=== PATIENT | female | born 1980 | race Caucasian/White ===

== ENCOUNTER 2017-10-18 15:53 | Observation (INO) | payer SELFPAY ==
[~2017-10-18] VITALS: Ht 152.4 cm; Wt 70.3 kg
[2017-10-18 18:00] LABS: CLARITY URINE CLOUDY (CLEAR); COLOR URINE DARK YELLOW (YELLOW); KETONES URINE TRACE (NEGATIVE); LEUKOCYTE ESTERASE URINE NEGATIVE (NEGATIVE); NITRITE URINE NEGATIVE (NEGATIVE); OCCULT BLOOD URINE NEGATIVE (NEGATIVE); PH URINE 6.5 (4.5-8.0); PROTEIN URINE 1+ (NEGATIVE); SPECIFIC GRAVITY URINE 1.028 (1.005-1.030)
[2017-10-18] MEDS ORDERED: LACTATED RINGERS 1,000 ML IV ONE (19:45)
[2017-10-18] MEDS ORDERED: DEXT 5%/LACTATED RINGERS 1,000 ML IV SCH (20:00)
[2017-10-18] MEDS ORDERED: TERBUTALINE SULFATE 1MG/ML VIAL SUBCUT SCH (21:34)
== END 2017-10-18 22:57 | disposition home or self-care (01) ==
LOC: L&D 15:53
PROVIDERS: ADMIT Obstetrics & Gynecology; ATTEND Obstetrics & Gynecology
DX: O26.893 Other specified pregnancy related conditions, third trimester (principal); R10.30 Lower abdominal pain, unspecified; O62.9 Abnormality of forces of labor, unspecified; O99.89 Other specified diseases and conditions complicating pregnancy, childbirth and the puerperium; M54.9 Dorsalgia, unspecified; Z3A.36 36 weeks gestation of pregnancy
CPT/HCPCS: 76805; 76818; 81003; 96360; 96361; 96372; 99281; G0378; J3105; J7120; 96365

== ENCOUNTER 2017-10-31 23:33 | Inpatient (IN) | payer MEDICAID ==
[~2017-10-31] VITALS: Ht 152.4 cm; Wt 71.7 kg
[2017-11-01] VITALS (7 sets, daily range): BP systolic 96–113; BP diastolic 58–70
[2017-11-01] MEDS ORDERED: NALOXONE HCL 0.4 MG/ML 1ML VIAL IM PRN (00:45)
[2017-11-01] MEDS ORDERED: CARBOPROST TROMETHAMINE 250 MCG/ML AMPUL IM PRN (00:45)
[2017-11-01] MEDS: LACTATED RINGERS 1,000 ML IV SCH ×4 (00:45→21:59)
[2017-11-01] MEDS ORDERED: METHYLERGONOVINE MALEATE 0.2 MG/ML IM PRN (00:45)
[2017-11-01] MEDS ORDERED: DEXT 5%/LR + PITOCIN 20UNITS/L 1,000 ML IV SCH ×2 (00:45→03:02)
[2017-11-01] MEDS ORDERED: FENTANYL CITRATE/PF 50MCG/ML 2ML VIAL ONE (01:42)
[2017-11-01] MEDS ORDERED: MORPHINE SULFATE/PF 1MG/ML 10ML AMP ONE (01:42)
[2017-11-01 01:45] LABS: HEMATOCRIT. 38.6 % (36.0-48.0); HEMOGLOBIN. 13.7 g/dL (12.0-16.0); MEAN PLATELET VOLUME 10.1 fl (7.4-10.4); PLATELET 199 x1000/uL (130-400); RED BLOOD CELL COUNT 4.15 mill/uL (4.2-5.4); RED CELL DISTRIBUTION WIDTH 13.3 % (11.6-14.6)
[2017-11-01 02:03] LABS: CLARITY URINE CLEAR (CLEAR); COLOR URINE YELLOW (YELLOW); KETONES URINE NEGATIVE (NEGATIVE); LEUKOCYTE ESTERASE URINE NEGATIVE (NEGATIVE); NITRITE URINE NEGATIVE (NEGATIVE); OCCULT BLOOD URINE NEGATIVE (NEGATIVE); PH URINE 6.5 (4.5-8.0); PROTEIN URINE NEGATIVE (NEGATIVE); SPECIFIC GRAVITY URINE 1.005 (1.005-1.030); UROBILINOGEN URINE 0.2 E.U./dL (0.2-1.0)
[2017-11-01 02:12] LABS: *AMPHETAMINES SCREEN URINE NEGATIVE (NEGATIVE)
[2017-11-01 02:13] LABS: *BARBITURATES SCREEN URINE NEGATIVE (NEGATIVE); *BENZODIAZEPINES SCREEN URINE NEGATIVE (NEGATIVE); *COCAINE SCREEN URINE NEGATIVE (NEGATIVE); METHADONE URINE SCREEN NEGATIVE (NEGATIVE); OPIATES URINE SCREEN NEGATIVE (NEGATIVE); PHENCYCLIDINE URINE SCREEN NEGATIVE (NEGATIVE)
[2017-11-01 02:14] LABS: CANNABINOID URINE SCREEN NEGATIVE (NEGATIVE)
[2017-11-01] MEDS ORDERED: CEFAZOLIN SODIUM 1000MG/VIAL ONE (02:33)
[2017-11-01] MEDS ORDERED: IBUPROFEN 400MG TABLET PO PRN (03:15)
[2017-11-01] MEDS ORDERED: ACETAMINOPHEN WITH CODEINE 300/30MG TABLET PO PRN (03:15)
[2017-11-01] MEDS ORDERED: RHO(D) IMMUNE GLOBULIN 300 MCG/SYR IM PRN (03:15)
[2017-11-01] MEDS ORDERED: HYDROMORPHONE HCL/PF 2MG/ML CPJ IM PRN (03:15)
[2017-11-01] MEDS ORDERED: SODIUM CHLORIDE 0.9% 1,000 ML IV SCH (03:21)
[2017-11-01] MEDS ORDERED: ATROPINE SULFATE 0.4MG/ML VIAL IV PRN (03:30)
[2017-11-01] MEDS ORDERED: DIPHENHYDRAMINE 50MG/ML VIAL IV PRN (03:30)
[2017-11-01] MEDS ORDERED: MEPERIDINE HCL/PF 25MG/ML CPJ IV PRN (03:30)
[2017-11-01] MEDS ORDERED: MORPHINE SULFATE 4 MG/ML CPJ (NOT FOR IM USE) IV PRN (03:30)
[2017-11-01] MEDS ORDERED: ONDANSETRON HCL 4MG/2ML VIAL IV PRN (03:30)
[2017-11-01] MEDS ORDERED: NALOXONE HCL 0.4 MG/ML 1ML VIAL IV PRN (03:30)
[2017-11-01] MEDS ORDERED: KETOROLAC 30MG/ML VIAL IV PRN (03:30)
[2017-11-01] MEDS ORDERED: PREN1TAB33 MT (03:39)
[2017-11-01] MEDS ORDERED: FERR236T3 MT (03:39)
[2017-11-01] MEDS ORDERED: METOCLOPRAMIDE HCL 10MG/2ML VIAL IV PRN (04:00)
[2017-11-01] MEDS ORDERED: BISACODYL 10MG SUPP PR PRN (04:00)
[2017-11-01 05:23] LABS: PLATELET ESTIMATE NORMAL
[2017-11-01 07:30] LABS: RUBELLA IGG 243.4 IU/mL (4.99-10)
[2017-11-01 07:31] LABS: HEPATITIS B SURFACE ANTIGEN NEGATIVE
[2017-11-02] VITALS: BP 117/75
[2017-11-02 06:00] VITALS: BP 114/68
[2017-11-02 08:00] VITALS: BP 105/72
[2017-11-02 08:34] LABS: BASOPHILS % 0.3 % (0.0-2.0); EOSINOPHILS % 0.8 % (0.0-5.0); HEMATOCRIT. 35.6 % (36.0-48.0); HEMOGLOBIN. 12.7 g/dL (12.0-16.0); LYMPHOCYTES % 13.1 % (20.0-50.0); MEAN CORPUSCULAR HEMOGLOBIN 33.5 pg (28.0-32.0); MEAN CORPUSCULAR VOLUME 93.6 fL (81.0-99.0); MEAN PLATELET VOLUME 9.7 fl (7.4-10.4); MONOCYTES % 7.1 % (2.0-8.0); NEUTROPHILS % 78.7 % (40.0-76.0); PLATELET 173 x1000/uL (130-400); RED CELL DISTRIBUTION WIDTH 13.5 % (11.6-14.6)
[2017-11-02] MEDS: IBUPROFEN 800MG TABLET PO PRN ×2 (09:07→23:35)
[2017-11-02 12:00] VITALS: BP 109/66
[2017-11-02 16:00] VITALS: BP 115/67
[2017-11-02 20:07] VITALS: BP 119/79
[2017-11-03] VITALS: BP 116/72
[2017-11-03 04:00] VITALS: BP 108/67
[2017-11-03 08:24] VITALS: BP 115/74
== END 2017-11-03 15:30 | disposition home or self-care (01) | DRG 540 ==
LOC: L&D 23:33 → OBSVTOIN 23:33 → L&D 23:47 → 7EST PP/OB 11-01 05:00
PROVIDERS: ADMIT Obstetrics & Gynecology; ATTEND Obstetrics & Gynecology
PROC: 0U570ZZ Destruction of Bilateral Fallopian Tubes, Open Approach (ICD-10-PCS; 2017-11-01)
PROC: 10D00Z1 Extraction of Products of Conception, Low, Open Approach (ICD-10-PCS; principal; 2017-11-01 03:00)
DX: O34.211 Maternal care for low transverse scar from previous cesarean delivery (principal); O99.824 Streptococcus B carrier state complicating childbirth; O09.523 Supervision of elderly multigravida, third trimester; Z37.0 Single live birth; Z3A.38 38 weeks gestation of pregnancy; Z30.2 Encounter for sterilization; Z79.899 Other long term (current) drug therapy
CPT/HCPCS: 36415; 80305; 81003; 85025; 85730; 86592; 86703; 86762; 86850; 86900; 87340; 88302; 88307; 99281; J0690; J1885; J2274; J2405; J2590; J3010; J7120; A4315